=== PATIENT | male | born 2000 | race Hispanic/Latino ===

== ENCOUNTER 2020-05-18 00:36 | Emergency (ER) | payer BC, MEDICAID, OTHER ==
[2020-05-18] MEDS ORDERED: ACETAMINOPHEN 325 MG TAB ONE (02:04)
[2020-05-18] MEDS ORDERED: KETOROLAC 30MG VIAL (30MG/ML) ONE (02:42)
== END 2020-05-18 02:59 | disposition home or self-care (01) ==
LOC: EDH 00:36
DX: S06.0X9A Concussion with loss of consciousness of unspecified duration, initial encounter (principal); S00.83XA Contusion of other part of head, initial encounter; Y08.89XA Assault by other specified means, initial encounter; Y93.89 Activity, other specified; Y92.830 Public park as the place of occurrence of the external cause; Y99.8 Other external cause status
CPT/HCPCS: 70450; 70486; 72125; 96372; 99285; J1885

== ENCOUNTER 2024-01-05 13:37 | Emergency (ER) | payer BC ==
[~2024-01-05] VITALS: Ht 167.6 cm; Wt 78.5 kg
[2024-01-05] MEDS: IBUPROFEN 800 MG TAB PO ONE (15:14)
[2024-01-05] MEDS ORDERED: KETO15CR2 TP (15:52)
[2024-01-05 16:13] VITALS: BP 131/88; PULSE 85; RESP 20; TEMP 98.7; O2SAT 99
== END 2024-01-05 16:08 | disposition home or self-care (01) ==
LOC: EDH 13:37
DX: B35.3 Tinea pedis (principal); Z98.890 Other specified postprocedural states
CPT/HCPCS: 36415; 73630; 84550